=== PATIENT | male | born 1980 | race Caucasian/White ===

== ENCOUNTER → 2024-08-19 10:04 | Outpatient (REF) | payer OTHER, SELFPAY | LOC: HWRAD 10:04 | PROVIDERS: ATTENDING PHYSICIAN Nurse Practitioner Family; FAMILY PHYSICIAN Internal Medicine | DX: R10.31 Right lower quadrant pain (principal); R10.30 Lower abdominal pain, unspecified; N50.89 Other specified disorders of the male genital organs | CPT/HCPCS: 76870; 93976 ==

== ENCOUNTER 2024-10-26 06:21 | Day surgery (SDC) | payer OTHER, SELFPAY | END 2024-10-26 14:13 | disposition home or self-care (01) | LOC: GI 06:21 | PROVIDERS: ATTENDING PHYSICIAN Internal Medicine Gastroenterology | DX: Z12.11 Encounter for screening for malignant neoplasm of colon (principal); K63.5 Polyp of colon | CPT/HCPCS: 45380; 88305 ==